=== PATIENT | male | born 1980 | race Caucasian/White ===

== ENCOUNTER → 2016-10-16 | Outpatient (CLI) | payer BC ==
--- NOTE | ~2016-10-16 | CT4 ---
[facility] A Service of [facility] RADIOLOGY TEXT RESULTS PATIENT: CANDIDA OSEGUERA LOCATION: [facility] : 78 UNIT #: [id number] AGE: [address]: Paco Miller MD SEX: M ORDER DR: [id number] [facility] [address] [place], [place] [address] [id number] O MR#: [id number] Acc #: [id number] NAME: CANDIDA OSEGUERA : 1980 SEX: M STUDY DATE/TIME: 10/16/2016 9:26 UNIT: [facility]AT ROOM: STUDY DESCRIPTION: CT Abd and Pelv Wo Cont Attending Physician: Paco Miller M.D. Referring Physician: Paco Miller M.D. Ordering Physician: Paco Miller M.D. Primary Care Physician: Paco Miller M.D. MEDICAL IMAGING REPORT This report is preliminary unless electronic signature is present EXAM CT abdomen and pelvis without contrast INDICATION Abnormal urine sediment analysis. Lower back and flank pain for the past 2 months, worsening over the past two weeks. Difficulty urinating. PROCEDURE Unenhanced CT of the abdomen and pelvis COMPARISON None TECHNIQUE This CT exam was performed with one or more of the following radiation dose reduction techniques: automatic exposure control, adjustment of mA and/or kV according to patient size, and iterative reconstruction. FINDINGS ABDOMEN WITHOUT CONTRAST: Included lung bases are clear. Liver, spleen, kidneys, adrenal glands, pancreas, gallbladder unremarkable unenhanced appearance. Bowel loops are nondilated. Appendix is normal. No radiodense ureteral calculus or hydronephrosis. PELVIS WITHOUT CONTRAST: No radiodense bladder calculus. No pelvic mass or fluid. No aggressive appearing bone lesion. Prostate gland is normal in size. IMPRESSION No acute findings. No radiodense urinary system calculus or hydronephrosis. [facility] A Service of [facility] RADIOLOGY TEXT RESULTS PATIENT: CANDIDA OSEGUERA LOCATION: [facility] : 78 UNIT #: [id number] AGE: [address]: Paco Miller MD SEX: M ORDER DR: Dictated by... Adonay Strong M.D. THIS IS AN ELECTRONICALLY VERIFIED REPORT Adonay Strong M.D. at 10/16/2016 4:51 PM [facility] TD: 10/16/2016 11:12 JOB #: [id number] MEDICAL IMAGING REPORT Page 1 of 1 COPY
== END | disposition home or self-care (01) ==
LOC: CCAT 09:13
DX: R82.90 Unspecified abnormal findings in urine (principal); R39.89 Other symptoms and signs involving the genitourinary system; M54.5 Low back pain
CPT/HCPCS: 74176